=== PATIENT | female | born 1985 | race Caucasian/White ===

== ENCOUNTER 2016-05-30 00:02 | Inpatient (IN) | payer OTHER ==
[~2016-05-30] VITALS: Ht 154.9 cm; Wt 105.3 kg
[2016-05-30 00:23] VITALS: BP 127/78; PULSE 82; RESP 18; Ht 154.9 cm; Wt 105.3 kg
[2016-05-30] MEDS ORDERED: FERR325C PO (00:25)
[2016-05-30] MEDS ORDERED: PRENAT PO (00:25)
[2016-05-30] MEDS ORDERED: MISOPROSTOL 200 MCG TAB PR PRN ×2 (03:00→15:00)
[2016-05-30] MEDS ORDERED: METHYLERGONOVINE 0.2 MG INJ IM PRN ×2 (03:00→15:00)
[2016-05-30] MEDS ORDERED: BUTORPHANOL 2 MG INJ IV PRN (03:00)
[2016-05-30] MEDS ORDERED: LIDOCAINE 1% (MPF) 30 ML INJ INJ PRN (03:00)
[2016-05-30] MEDS ORDERED: AMPICILLIN 2 GM/NS (PMX) 100 ML IV ONE (03:00)
[2016-05-30] MEDS ORDERED: CARBOPROST 250 MCG INJ IM PRN ×2 (03:00→15:00)
[2016-05-30] MEDS ORDERED: OXYTOCIN 30 UNITS/LR 500 ML IV SCH (03:00)
[2016-05-30] MEDS ORDERED: OXYTOCIN 30 UNITS/LR 500 ML IV PRN ×2 (03:00→15:00)
[2016-05-30] MEDS: LACTATED RINGER'S 1,000 ML IV SCH ×2 (03:14→11:00)
[2016-05-30 04:39] LABS: INR 0.9; PARTIAL THROMBOPLASTIN TIME 24.7 Sec (25.0-35.0); PROTIME 12.1 Sec (12.2-14.2); PT RATIO 0.9
[2016-05-30 04:47] LABS: BASOPHILS % 0.4 % (0.0-2.0); EOSINOPHILS # 0.1 10^3/ul (0.0-0.5); EOSINOPHILS % 0.6 % (0.0-7.0); HEMATOCRIT 36.8 % (37.0-47.0); HEMOGLOBIN 12.4 g/dl (12.0-16.0); LYMPHOCYTES % 23.7 % (15.0-51.0); MEAN CORPUSCULAR HEMOGLOBIN 32.1 pg (29.0-33.0); MEAN CORPUSCULAR HGB CONC 33.8 g/dl (32.0-37.0); MEAN CORPUSCULAR VOLUME 94.8 fl (82.0-101.0); MEAN PLATELET VOLUME 8.8 fl (7.4-10.4); MONOCYTE # 0.3 10^3/ul (0.3-0.9); NEUTROPHIL # 6.1 10^3/ul (1.6-7.5); NEUTROPHILS % 71.3 % (39.0-77.0); PLATELET COUNT 155 10^3/UL (140-440); RED BLOOD COUNT 3.88 10^6/ul (4.20-5.40); RED CELL DISTRIBUTION WIDTH 15.8 % (11.5-14.5); UNCORRECTED WBC 8.6 10^3/ul (4.8-10.8); WHITE BLOOD COUNT 8.6 10^3/ul (4.8-10.8)
[2016-05-30 05:16] LABS: CONDITION 1; LH ANALYZER COMMENTS 1
[2016-05-30] MEDS ORDERED: FENTAnyl 2MCG/ML-ROPIV 0.2% 100 ML ONE (05:43)
[2016-05-30] MEDS ORDERED: PROCHLORPERAZINE 10 MG INJ IV PRN (06:00)
[2016-05-30] MEDS ORDERED: KETOROLAC 30 MG INJ IV PRN (06:00)
[2016-05-30] MEDS ORDERED: HYDROmorphONE 1 MG/ML SYG IV PRN ×2 (06:00)
[2016-05-30] MEDS ORDERED: ONDANSETRON 4 MG INJ IV PRN (06:00)
[2016-05-30] MEDS ORDERED: FENTAnyl 2MCG/ML-ROPIV 0.2% 100 ML BAG EPI SCH (06:00)
[2016-05-30] MEDS ORDERED: NALOXONE (0.4 MG/ML) INJ IV PRN (06:00)
[2016-05-30] MEDS ORDERED: DIPHENHYDRAMINE 50 MG INJ IV PRN (06:00)
[2016-05-30] MEDS ORDERED: LACTATED RINGER'S 1,000 ML IV PRN (07:00)
[2016-05-30] MEDS: AMPICILLIN 1 GM/NS (PMX) 50 ML IV SCH ×2 (07:13→10:59)
[2016-05-30] MEDS: OXYTOCIN 30 UNITS/LR 500 ML IV SCH ×2 (12:04→13:37)
--- NOTE | 2016-05-30 12:16 | LDN ---
Date/Time of Note Date/Time of Note DATE: 05/30/16 TIME: 12:15 Delivery Summary Placenta Delivered: Spontaneously Meconium: none Perineum intact?: Yes Anesthesia type: Epidural Estimated blood loss: 200 Sponge & Needle done & correct: Yes All needle counts correct: Yes Any foreign bodies felt in the: No Problems: Delivery Information Apgars 1 Minute: 9 5 Minute: 9 Suctioning Nose & mouth suctioned at sophie: Yes Delee suction performed: No Umbilical Cord Umbilical cord with: 3 Vessels Cord presentations: nuchal cord Nuchal cord present X: 1 Cord Blood was obtained: Yes Mother & Baby Disposition Disposition Mom & Baby to Maternity; Good: Yes Baby to NICU: No MARIA ELENA YOUNG M.D. May 30, 2016 12:16
--- NOTE | 2016-05-30 12:18 | HP ---
Date/Time of Note Date/Time of Note DATE: 05/30/16 TIME: 12:16 OB - History Hx of Present Free Text/Dictation @39+wks GA labor : 7 Para: 5 Care: Good Care Ultrasounds: Normal mid trimester US Obstetrical Complications: None Medical Complications: None Past Family/Social History * Past Medical, Surgical, Family and Obstetric Histories reviewed from chart. OB Admission Exam Vital Signs Vital Signs Vital Signs Date Time Temp Pulse Resp B/P Pulse Ox O2 Delivery O2 Flow Rate FiO2 05/30/16 00:23 97.9 82 18 127/78 Physical Exam Abdomen: WNL Extremities: Normal Cervical Dilatation: 10cm Effacement: 75% Station: -1 Membranes: Intact Heart Rate: 140's Accelerations: Accelerations Present Decelerations: No Decelerations Varibility: Moderate Contractions on Admission: < 5 Minutes Apart Last 72 hours Lab Results CBC & BMP 05/30/16 03:10 OB Assessment/Plan Reason for admission: active labor Other plan: Anticipated MARIA ELENA YOUNG M.D. May 30, 2016 12:17
[2016-05-30 14:30] VITALS: BP 133/74; PULSE 74; RESP 18
[2016-05-30] MEDS ORDERED: LACTATED RINGER'S 1,000 ML IV* SCH (14:35)
[2016-05-30 15:00] VITALS: BP 136/71; PULSE 73; RESP 18
[2016-05-30] MEDS ORDERED: LANOLIN 7 GM TUBE TOP PRN (15:00)
[2016-05-30] MEDS ORDERED: WITCH HAZEL/GLYCERIN PAD PR PRN (15:00)
[2016-05-30] MEDS ORDERED: SENNA/DOCUSATE NA (8.6MG/50MG) TAB PO PRN (15:00)
[2016-05-30] MEDS ORDERED: BENZOCAINE 20% 56 ML SPRAY TOP PRN (15:00)
[2016-05-30] MEDS ORDERED: OXYCODONE/ASPIRIN (4.88/325) TAB PO PRN (15:00)
[2016-05-30] MEDS ORDERED: ZOLPIDEM 5 MG TAB PO PRN (15:00)
[2016-05-30 16:31] VITALS: BP 124/71; PULSE 84; RESP 18
[2016-05-30] MEDS: IBUPROFEN 600 MG TAB PO SCH ×2 (17:29→23:41)
[2016-05-30 20:10] VITALS: BP 116/66; PULSE 65; RESP 18
[2016-05-30] MEDS: SENNA/DOCUSATE NA (8.6MG/50MG) TAB PO SCH (21:01)
[2016-05-31 03:44] VITALS: BP 122/73; PULSE 65; RESP 18
[2016-05-31] MEDS: IBUPROFEN 600 MG TAB PO SCH ×4 (05:29→23:56)
[2016-05-31 07:06] LABS: BASOPHILS % 0.3 % (0.0-2.0); EOSINOPHILS # 0.1 10^3/ul (0.0-0.5); EOSINOPHILS % 0.7 % (0.0-7.0); HEMATOCRIT 33.4 % (37.0-47.0); HEMOGLOBIN 11.4 g/dl (12.0-16.0); LYMPHOCYTES # 1.8 10^3/ul (0.8-2.9); LYMPHOCYTES % 23.8 % (15.0-51.0); MEAN CORPUSCULAR HEMOGLOBIN 32.6 pg (29.0-33.0); MEAN CORPUSCULAR HGB CONC 34.1 g/dl (32.0-37.0); MEAN CORPUSCULAR VOLUME 95.7 fl (82.0-101.0); MEAN PLATELET VOLUME 8.7 fl (7.4-10.4); MONOCYTE # 0.4 10^3/ul (0.3-0.9); MONOCYTES % 4.7 % (0.0-11.0); NEUTROPHIL # 5.5 10^3/ul (1.6-7.5); NEUTROPHILS % 70.5 % (39.0-77.0); PLATELET COUNT 131 10^3/UL (140-440); RED BLOOD COUNT 3.49 10^6/ul (4.20-5.40); UNCORRECTED WBC 7.8 10^3/ul (4.8-10.8); WHITE BLOOD COUNT 7.8 10^3/ul (4.8-10.8)
[2016-05-31 07:18] LABS: CONDITION 1; LH ANALYZER COMMENTS 1
[2016-05-31 08:00] VITALS: BP 101/63; PULSE 67; RESP 18
[2016-05-31] MEDS: SENNA/DOCUSATE NA (8.6MG/50MG) TAB PO SCH ×2 (10:08→21:13)
[2016-05-31 16:00] VITALS: BP 118/68; PULSE 63; RESP 18
[2016-05-31 19:50] VITALS: BP 121/76; PULSE 76; RESP 18
[2016-06-01 03:45] VITALS: BP 127/85; PULSE 63; RESP 19
[2016-06-01] MEDS: IBUPROFEN 600 MG TAB PO SCH ×3 (05:38→17:07)
[2016-06-01 07:20] VITALS: BP 128/81; PULSE 72; RESP 16
[2016-06-01] MEDS ORDERED: INFLUENZA VIRUS VACCINE 0.5 ML (DISPENSING) IM* ONE (09:00)
[2016-06-01] MEDS ORDERED: DIPHTH/TET/ACEL PERTUSS (ADULT) 0.5 ML VIAL IM* ONE (09:00)
[2016-06-01] MEDS: SENNA/DOCUSATE NA (8.6MG/50MG) TAB PO SCH (10:23)
[2016-06-01 16:14] VITALS: BP 125/73; PULSE 64; RESP 16
== END 2016-06-01 19:01 | disposition home or self-care (01) | DRG 775 ==
LOC: OBT 00:02 → L-D 00:03 → OBT 02:53 → L-D 02:55 → PP1 14:19
PROVIDERS: ADMIT Specialist; ATTEND Specialist
PROC: 10E0XZZ Delivery of Products of Conception, External Approach (ICD-10-PCS; principal; 2016-05-30)
PROC: 3E00X4Z Introduction of Serum, Toxoid and Vaccine into Skin and Mucous Membranes, External Approach (ICD-10-PCS; 2016-06-01)
DX: O69.81X0 Labor and delivery complicated by cord around neck, without compression, not applicable or unspecified (principal); Z68.41 Body mass index [BMI] 40.0-44.9, adult; O99.214 Obesity complicating childbirth; E66.01 Morbid (severe) obesity due to excess calories; Z23 Encounter for immunization; Z3A.39 39 weeks gestation of pregnancy; Z37.0 Single live birth
CPT/HCPCS: 62319; 85025; 85610; 85730; 86592; 86900; 86901; 87340; 90686; 90715; G0463; J0290; J2590; J3010; J7120

== ENCOUNTER 2016-08-30 09:42 | Emergency (ER) | payer OTHER ==
[~2016-08-30] VITALS: Ht 162.6 cm; Wt 96.0 kg
[~2016-08-30 09:42] MED LIST: FERR325C PO; PRENAT PO
[2016-08-30 10:07] VITALS: Ht 162.6 cm; Wt 96.0 kg
[2016-08-30] MEDS ORDERED: AZIT250T94 PO (12:46)
[2016-08-30] MEDS ORDERED: ALBU18HF INHALATION (12:47)
[2016-08-30] MEDS ORDERED: BENZ100C70 PO (12:47)
--- NOTE | 2016-08-30 15:51 | ERD ---
ER Documentation Chief Complaint Date/Time DATE: 08/30/16 TIME: 15:49 Chief Complaint Pt with cough X 2 weeks, denies fevers. HPI 30-year-old female patient with no significant past medical history presents the ED complaining of a cough that started 2 weeks ago. Reports that it is dry. States that her children also sick with similar symptoms. Reports that she has been taking Robitussin without relief. States her last menses is on June 27, 2016 but denies being . Denies any chest pain, shortness of breath, wheezing, abdominal pain, nausea, vomiting. ROS All systems reviewed and are negative except as per history of present illness. Medications Home Meds Active Scripts Albuterol Sulfate* (Ventolin HFA*) 18 Gm Hfa.aer.ad, 2 PUFF INHALATION Q4H, #1 INHALER Prov:CRUZITO ZAMORA PA-C 08/30/16 Benzonatate* (Tessalon Perle*) 100 Mg Capsule, 100 MG PO Q8H Y for COUGH, #20 CAP Prov:CRUZITO ZAMORA PA-C 08/30/16 Azithromycin* (Zithromax*) 250 Mg Tablet, 250 MG PO .ZPACK DIRECTED, #6 TAB TAKE 500 MG (2 TABS) THE FIRST DAY THEN 250 MG (1 TAB) DAYS 2-5 Prov:CRUZITO ZAMORA PA-C 08/30/16 Reported Medications Ferrous Sulfate (Iron) 325 Mg Capsule.er, 325 MG PO DAILY, CAP 05/30/16 Multivit/Min/Fol Ac/Iron/Pren* ( S*) 1 Tab Tab, 1 TAB PO DAILY, TAB 05/30/16 Allergies Allergies: Coded Allergies: No Known Allergy (Verified , 05/30/16) PMhx/Soc History of Surgery: Yes (GB) Hx Neurological Disorder: No Hx Respiratory Disorders: No Hx Cardiac Disorders: No Hx Miscellaneous Medical Probl: No Hx Alcohol Use: No Hx Substance Use: No Hx Tobacco Use: No Smoking Status: Never smoker Physical Exam Vitals Vital Signs Date Time Temp Pulse Resp B/P Pulse Ox O2 Delivery O2 Flow Rate FiO2 08/30/16 10:07 97.9 75 18 148/79 96 Physical Exam Const: Ums-zeu-sbahzxzno, well-nourished. In no acute distress. Head: Atraumatic, normocephalic Eyes: Normal Conjunctiva without injection. No purulent discharge. PERRL. EOMI ENT: Normal external ear. Ear canal without erythema. Tympanic membrane pearly arnett without effusion or bulging. Nasal canal clear with normal turbinates. Moist oropharynx without tonsillar exudates. Non-erythematous pharynx. Uvula midline. No drooling. No trismus. Neck: Full range of motion. No meningismus. No cervical lymphadenopathy. Resp: Clear to auscultation bilaterally. No wheezing, rhonchi, rales, or crackles. No accessory muscle use. No retractions. Cardio: Regular rate and rhythm. No murmurs, rubs or gallops. Abd: Soft, non tender, non distended. Normal bowel sounds. No palpable masses. No rebound tenderness. No guarding. Skin: No petechiae or rashes Back: No midline tenderness. No CVA tenderness. Ext: No cyanosis, or edema. Neur: Awake and alert. Psych: Normal Mood and Affect Procedures/MDM This is a 30-year-old female patient with no significant past medical history presents to the ED complaining of a cough that started intermittently 2 weeks ago. Patient is afebrile nontoxic appearing. Patient has normal vital signs. A chest x-ray was discussed with the patient at this time. She stated that she would like to try outpatient prescriptions before obtaining a chest x-ray. Patient likely has bronchitis since she does have sick contacts. Patient has a normal pulse oximetry of 96%. Patient's physical exam include lungs which were clear to auscultation and a normal pulse oximetry. There is a low suspicion for a croup, pneumonia, pneumothorax, cardiac tamponade, peritonsillar abscess, foreign body aspiration, mastoiditis, retropharyngeal abscess, epiglottitis, meningitis, sepsis or other emergent conditions. Discharge medications: Ventolin, Tessalon Perles, Zithromax Mother was instructed to bring patient back to the ED for any new or worsening symptoms. They should otherwise follow up with the primary care provider within 1-2 days. The parent's questions were answered at the time of discharge. Parent understood and agreed with discharge management. Departure Diagnosis: Primary Impression: Cough Condition: Stable Patient Instructions: Bronchitis, Antiobiotic Treatment (Adult) Referrals: COMMUNITY CLINICS YOU HAVE RECEIVED A MEDICAL SCREENING EXAM AND THE RESULTS INDICATE THAT YOU DO NOT HAVE A CONDITION THAT REQUIRES URGENT TREATMENT IN THE EMERGENCY DEPARTMENT. FURTHER EVALUATION AND TREATMENT OF YOUR CONDITION CAN WAIT UNTIL YOU ARE SEEN IN YOUR DOCTORS OFFICE WITHIN THE NEXT 1-2 DAYS. IT IS YOUR RESPONSIBILITY TO MAKE AN APPOINTMENT FOR FOLOW-UP CARE. IF YOU HAVE A PRIMARY DOCTOR --you should call your primary doctor and schedule an appointment IF YOU DO NOT HAVE A PRIMARY DOCTOR YOU CAN CALL OUR PHYSICIAN REFERRAL HOTLINE AT IF YOU CAN NOT AFFORD TO SEE A PHYSICIAN YOU CAN CHOSE FROM THE FOLLOWING [facility] [address] [facility]. [facility] [address] [facility]. [facility] [address] [facility]. [facility] [address] [facility]. [facility] [address] [facility]. [facility] [address] [facility] [facility] YOU HAVE RECEIVED A MEDICAL SCREENING EXAM AND THE RESULTS INDICATE THAT YOU DO NOT HAVE A CONDITION THAT REQUIRES URGENT TREATMENT IN THE EMERGENCY DEPARTMENT. FURTHER EVALUATION AND TREATMENT OF YOUR CONDITION CAN WAIT UNTIL YOU ARE SEEN IN YOUR DOCTORS OFFICE WITHIN THE NEXT 1-2 DAYS. IT IS YOUR RESPONSIBILITY TO MAKE AN APPOINTMENT FOR FOLOW-UP CARE. IF YOU HAVE A PRIMARY DOCTOR --you should call your primary doctor and schedule and appointment IF YOU DO NOT HAVE A PRIMARY DOCTOR YOU CAN CALL OUR PHYSICIAN REFERRAL HOTLINE AT . IF YOU CAN NOT AFFORD TO SEE A PHYSICIAN YOU CAN CHOSE FROM THE FOLLOWING [facility] INSTITUTIONS: [facility] [address] [place] [address] [facility] [address] [place] [address] [facility] + [facility] [address] [place] [address] [facility]CIALT[facility] Additional Instructions: Call your primary care doctor TOMORROW for an appointment during the next 2-3 days.See the doctor sooner or return here if your condition worsens before your appointment time. CRUZITO ZAMORA PA-C August 30, 2016 15:51 CRUZITO ZAMORA PA-C August 30, 2016 15:51
== END 2016-08-30 13:08 | disposition home or self-care (01) ==
LOC: FTE 09:42
DX: R05 Cough (principal)
CPT/HCPCS: 99284

== ENCOUNTER 2016-10-14 05:12 | Day surgery (SDC) | payer OTHER ==
[2016-10-13 08:49] VITALS: BMI 37.8
[2016-10-14] VITALS (17 sets, daily range): BP systolic 112–143; BP diastolic 59–78; PULSE 54–88; RESP 14–26; Ht 162.6 cm; Wt 96.4 kg
[~2016-10-14] VITALS: Ht 162.6 cm; Wt 96.4 kg
[~2016-10-14 05:12] MED LIST changes: +ALBU18HF INHALATION; +AZIT250T94 PO; +BENZ100C70 PO
[2016-10-14] MEDS ORDERED: CEFAZOLIN 2 GM/50 ML (PMX) 50 ML IVPB ONE (05:30)
[2016-10-14] MEDS ORDERED: LACTATED RINGER'S 1,000 ML IV* SCH (05:30)
[2016-10-14 06:49] LABS: ADD SCAN DIFF NO
[2016-10-14] MEDS ORDERED: BUPIVACAINE 0.25%/EPI (SDV) 30 ML INJ ONE (06:55)
[2016-10-14 06:59] LABS: BASOPHILS % 0.5 % (0.0-2.0); EOSINOPHILS # 0.1 10^3/ul (0.0-0.5); EOSINOPHILS % 1.3 % (0.0-7.0); HEMATOCRIT 38.5 % (37.0-47.0); HEMOGLOBIN 12.8 g/dl (12.0-16.0); LYMPHOCYTES # 2.6 10^3/ul (0.8-2.9); LYMPHOCYTES % 30.6 % (15.0-51.0); MEAN CORPUSCULAR HEMOGLOBIN 31.9 pg (29.0-33.0); MEAN CORPUSCULAR HGB CONC 33.2 g/dl (32.0-37.0); MEAN PLATELET VOLUME 9.8 fl (7.4-10.4); MONOCYTE # 0.5 10^3/ul (0.3-0.9); NEUTROPHIL # 5.1 10^3/ul (1.6-7.5); NEUTROPHILS % 61.5 % (39.0-77.0); PLATELET COUNT 251 10^3/UL (140-415); RED BLOOD COUNT 4.01 10^6/ul (4.20-5.40); RED CELL DISTRIBUTION WIDTH 13.4 % (11.5-14.5); WHITE BLOOD COUNT 8.4 10^3/ul (4.8-10.8)
[2016-10-14 07:29] LABS: INR 0.88; PROTIME 11.9 Sec (12.2-14.2); PT RATIO 0.9
[2016-10-14 07:30] LABS: PARTIAL THROMBOPLASTIN TIME 30.8 Sec (25.0-35.0)
[2016-10-14] MEDS ORDERED: NEOSTIGMINE 3 MG/3 ML SYRINGE ONE ×2 (07:39→08:31)
[2016-10-14] MEDS ORDERED: SUCCINYLCHOLINE CHLORIDE 100 MG/5 ML SYG IV ONE (07:39)
[2016-10-14] MEDS ORDERED: LIDOCAINE 2% (SDV) 5 ML INJ ONE (07:39)
[2016-10-14] MEDS ORDERED: PROPOFOL 20 ML ONE (07:39)
[2016-10-14] MEDS ORDERED: GLYCOPYRROLATE 0.4 MG INJ ONE ×3 (07:39→08:31)
[2016-10-14] MEDS ORDERED: ROCURONIUM 50 MG INJ ONE (07:39)
[2016-10-14] MEDS ORDERED: MEPERIDINE 100 MG INJ ONE (07:40)
--- NOTE | 2016-10-14 07:41 | HP ---
Date/Time of Note Date/Time of Note DATE: 10/14/16 TIME: 07:38 Assessment/Plan VTE Prophylaxis VTE Prophylaxis Intervention: SCD's HPI/ROS Admit Date/Time Admit Date/Time 31 YO G 7 P6 SAB 1 is requesting permanent sterilization. Risks and benefits and indications and alternatives discussed patients. risks including but not limited to onfection, bleeding, damage to other organs such as intestines or bladder, blood transfusion and possibility of failure of procedure discussed with patient. I also explained to her this procedures is permanent and not reversible. other reversible contraceptive methods also discussed with patient. patient also told that our plan is Laparoscopic BTL, but some times the surgery may be converted to Exploratory Laparotomy. Informed consent obtained Allergies: NKDA Medications: none ROS: Significant as above Past Medical History: none Past Surgical Historynone Physical Exam: Afebrile, VSS NAD A&O Heart: RRR Lung: CTA B Abdomen: Soft, Not tender Extremities: No edema Assessment: Patients desires permanent sterilization Plan: Laparoscopic BTL, Possible Exploratory Laparotomy. PMH/Family/Social Social History Smoking Status: Never smoker Exam/Review of Systems Vital Signs Vitals Vital Signs Date Time Temp Pulse Resp B/P Pulse Ox O2 Delivery O2 Flow Rate FiO2 10/14/16 05:57 97.2 78 18 112/77 100 Room Air Labs Result Diagram: 10/14/16 0620 Medications Medications Current Medications Lactated Ringer's (Lr) 1,000 ml @ 125 mls/hr Q8H IV* ; Start 10/14/16 at 05:30 ; Stop 10/14/16 at 23:00 BRIANDA VARNER MD Oct 14, 2016 07:41
[2016-10-14] MEDS ORDERED: CEFAZOLIN 1 GM INJ ONE (07:54)
[2016-10-14] MEDS ORDERED: DIPHENHYDRAMINE 50 MG INJ IV PRN (08:00)
[2016-10-14] MEDS ORDERED: MEPERIDINE 25 MG INJ IV PRN (08:00)
[2016-10-14] MEDS ORDERED: FENTAnyl 50 MCG/ML VIAL IV PRN (08:00)
[2016-10-14] MEDS ORDERED: ONDANSETRON 4 MG INJ IV PRN (08:00)
[2016-10-14] MEDS ORDERED: MIDAZOLAM 1 MG/ML 2 ML INJ IV PRN (08:00)
[2016-10-14] MEDS ORDERED: OXYCODONE/ACETAMINOPHEN (5/325) TAB PO PRN ×2 (08:00)
[2016-10-14] MEDS ORDERED: METOCLOPRAMIDE 10 MG INJ IV PRN (08:00)
[2016-10-14] MEDS ORDERED: morphine (1 MG/ML) 10ML SYRINGE IV PRN ×2 (08:00)
[2016-10-14] MEDS ORDERED: ONDANSETRON 4 MG INJ ONE (08:12)
[2016-10-14] MEDS ORDERED: METOCLOPRAMIDE 10 MG INJ ONE (08:13)
[2016-10-14] MEDS: FENTAnyl 50 MCG/ML VIAL IV PRN ×2 (08:52→09:10)
--- NOTE | 2016-10-26 08:23 | OPR ---
Date/Time of Note Date/Time of Note DATE: 10/26/16 TIME: 08:21 Operative Report Free Text/Dictation DATE OF OPERATION: 10 14 2016 PREOPERATIVE DIAGNOSIS: Patient desires permanent sterilization. She declined Essure. She desires laparoscopic tubal fulguration. POSTOPERATIVE DIAGNOSIS: Patient desires permanent sterilization. She declined Essure. She desires laparoscopic tubal fulguration. OPERATION PERFORMED: Laparoscopic fulguration and transection of bilateral tubes. SURGEON: Bryan Vásquez MD ESTIMATED BLOOD LOSS: Minimal. COMPLICATIONS: None. FINDINGS: Normal tubes, ovaries bilaterally. Normal uterus. CONSENT: Please see my preop H and P consent in the office for the consent process. DESCRIPTION OF PROCEDURE: She was taken to operating room and general anesthesia was induced. She was prepped and draped in the usual sterile fashion in dorsal lithotomy position. Surgical time-out was done. Anterior lip of the cervix was grasped using a single-tooth tenaculum, and a HUMI was inserted in normal fashion. The tenaculum was removed. There was no bleeding from the cervix. The patient already had a Gaitan catheter as well. Gloves were changed. A 5 mm incision was developed inside the umbilicus. A blunt trocar was inserted in the normal fashion. Intraperitoneal position was confirmed using the laparoscope. Pneumoperitoneum was obtained. The patient was placed in Trendelenburg position. A second trocar was inserted under direct visualization of the laparoscope at the pubic hairline in the midline. A 5 cm mid ampullary region of the right tube was coagulated. Complete desiccation of the entire diameter of tube was visualized. The middle of the coagulated portion was cut. There was no bleeding. Same procedure was done on the contralateral side. All instruments removed under direct visualization of the laparoscope after pneumoperitoneum was released. There was no bleeding. Skin closed using 4-0 Monocryl. Then 10 mL 0.25% Marcaine with epinephrine was injected at the incision sites. HUMI was removed. There was no bleeding from the vagina. Patient tolerated the procedure well. Anesthesia: general Estimated Blood Loss: minimal Complications: None Pt Condition Post Procedure: stable BRYAN VÁSQUEZ MD Oct 26, 2016 08:23
== END 2016-10-14 11:35 | disposition home or self-care (01) ==
LOC: SDS 05:12
PROVIDERS: ATTEND Specialist
DX: Z30.2 Encounter for sterilization (principal); E66.9 Obesity, unspecified; Z68.36 Body mass index [BMI] 36.0-36.9, adult
CPT/HCPCS: 58670; 85025; 85610; 85730; J0690; J2175; J2405; J2765; J3010; J7999; Z7512; Z7610; J2710

== ENCOUNTER 2017-03-16 09:39 | Day surgery (SDC) | payer OTHER ==
[2017-03-16] VITALS (11 sets, daily range): BP systolic 120–143; BP diastolic 71–77; PULSE 72–88; RESP 15–23; Ht 162.6 cm; Wt 100.7 kg
[~2017-03-16] VITALS: Ht 162.6 cm; Wt 100.7 kg
[~2017-03-16 09:39] MED LIST changes: +BUPIVACAINE 0.25% (MPF) 30 ML INJ ONE; +CEFAZOLIN 2 GM/50 ML (PMX) 50 ML IVPB ONE; +POLYMYXIN/BACITRACIN 1L IRRIG ONE; +SOD CHLORIDE 0.9% 1,000 ML IV SCH
[2017-03-16] MEDS ORDERED: ONDANSETRON 4 MG INJ ONE (10:35)
[2017-03-16] MEDS ORDERED: ROCURONIUM 50 MG INJ ONE (10:35)
[2017-03-16] MEDS ORDERED: FENTAnyl 50 MCG/ML VIAL ONE (10:35)
[2017-03-16] MEDS ORDERED: SUCCINYLCHOLINE CHLORIDE 100 MG/5 ML SYG IV ONE (10:35)
[2017-03-16] MEDS ORDERED: PROPOFOL 20 ML ONE (10:35)
[2017-03-16] MEDS ORDERED: METOCLOPRAMIDE 10 MG INJ ONE (10:36)
[2017-03-16] MEDS ORDERED: CEFAZOLIN 1 GM INJ ONE (10:36)
[2017-03-16] MEDS ORDERED: LIDOCAINE 1% (MPF) 30 ML INJ ONE (10:39)
[2017-03-16] MEDS ORDERED: POLYMYXIN/BACITRACIN 1L IRRIG IRR ONE (10:40)
[2017-03-16] MEDS ORDERED: BUPIVACAINE 0.25% (STERILE-PAK) 30 ML INJ INJ ONE (10:40)
[2017-03-16] MEDS ORDERED: KETOROLAC 30 MG INJ ONE (10:58)
[2017-03-16] MEDS ORDERED: FENTAnyl 50 MCG/ML VIAL IV PRN ×2 (11:30)
[2017-03-16] MEDS ORDERED: hydrALAzine 20 MG INJ IV PRN (11:30)
[2017-03-16] MEDS ORDERED: ONDANSETRON 4 MG INJ IV PRN (11:30)
[2017-03-16] MEDS ORDERED: LABETALOL HCL 20MG INJ IV PRN (11:30)
[2017-03-16] MEDS ORDERED: MEPERIDINE 25 MG INJ IV PRN (11:30)
[2017-03-16] MEDS ORDERED: HYDROmorphONE (0.2 MG/ML) 10ML SYG IV PRN ×2 (11:30)
--- NOTE | 2017-03-16 12:07 | OPR ---
Date/Time of Note Date/Time of Note DATE: 03/16/17 TIME: 12:03 Operative Report Procedure Date: Mar 16, 2017 Preoperative Diagnosis incarcerated ventral hernia Postoperative Diagnosis same Operation/Procedure Performed 1. laparoscopic incarcerated ventral hernia repair 2. intraabdominal implantation of 10x15 cm [address] mesh 3. therapeutic injection of subcutaneous local anesthesia Surgeon see signature line Field Care Manager none Anesthesia Type: general Estimated Blood Loss: 0 - 10 ml's Transfusion none Specimen none Grafts/Implants ventralight ST mesh 10x15 cm Complications none Pt Condition Post Procedure: stable Indications This is a 31-year-old female with an incarcerated ventral hernia. She requests surgical repair. Risks alternatives benefits and percent were discussed the patient. Patient expresses understanding consents to the operation. Procedure Description Patient is taken to the OR and prepped and draped in usual sterile fashion. Surgical timeout was performed. IV antibiotics given. Left upper quadrant 5 mm incision was made transversely with a 15 blade. Using a 5 mm optical trocar optical entry is performed. Pneumoperitoneum is established. Left flank 12 mm optical trocar was placed under direct visualization left lower quadrant 5 mm optical trocar was placed under direct visualization. Upon initial inspection there is incarcerated contents into the ventral hernia. This is reduced laparoscopically using laparoscopic harmonic epi. The contents were then extracted through the 12 mm flank port. The hernia defect was then identified. The hernia defect was closed with interrupted #1 Prolene with Endo Close and laparoscopic techniques. Underlay mesh with 10 x [address] mesh was secured in place with secure strap with approximately 4-5 cm of coverage in all directions. There is a little bit of bruising in the left periumbilical area this was reinforced with interrupted #1 Prolenes in interrupted 0 Vicryl using Endo Close and laparoscopic techniques. There is good hemostasis. Ports removed under direct visualization. Skin was closed using skin cierra. Therapeutic subcutaneous local anesthesia was injected throughout the incision site. Dry dressings were applied. Fran ALLEN Mar 16, 2017 12:07
[2017-03-16] MEDS ORDERED: HYDROCODONE/APAP (5/325) TAB PO ONE (12:30)
[2017-03-16] MEDS: HYDROmorphONE (0.2 MG/ML) 10ML SYG IV PRN ×3 (12:31→12:49)
== END 2017-03-16 15:06 | disposition home or self-care (01) ==
LOC: SDS 09:39
PROVIDERS: ATTEND Surgery
DX: K43.6 Other and unspecified ventral hernia with obstruction, without gangrene (principal); E66.9 Obesity, unspecified; Z68.38 Body mass index [BMI] 38.0-38.9, adult
CPT/HCPCS: 49561; 49568; 84703; C1781; J0690; J1170; J1885; J2405; J2765; J3010; Z7512; Z7610